=== PATIENT | female | born 1945 | race Caucasian/White ===

== ENCOUNTER 2018-07-29 06:55 | Day surgery (SDC) | payer OTHER, MEDICAID, MEDICARE ==
[2018-07-29] MEDS ORDERED: HEPARIN 10,000 UNIT/10 ML MDV (1,000 UNIT/ML) IVP PRN (07:28)
[2018-07-29] MEDS ORDERED: NALOXONE HCL 0.4 MG/ML INJ IVP PRN (07:28)
[2018-07-29] MEDS ORDERED: fentaNYL 100 MCG/2 ML INJ IVP PRN (07:28)
[2018-07-29] MEDS ORDERED: PROTAMINE SULFATE 50 MG/5 ML VIAL IVP PRN (07:28)
[2018-07-29] MEDS ORDERED: FLUMAZENIL 0.5 MG/5 ML MDV IVP PRN (07:28)
[2018-07-29] MEDS ORDERED: MIDAZOLAM 2 MG/2 ML VIAL IVP PRN (07:28)
[2018-07-29] MEDS ORDERED: NS 1,000 ML IV SCH (07:30)
[2018-07-29] MEDS ORDERED: LIDOCAINE 1% 300 MG/30 ML SDV ONE (08:18)
[2018-07-29] MEDS ORDERED: IOPAMIDOL (ISOVUE-300) 100 ML BTL ONE ×2 (08:18→10:09)
[2018-07-29 08:26] LABS: INR 0.95 (0.83-1.16); PROTIME(PATIENT) 12.9 SEC (12.0-15.0)
--- NOTE | 2018-07-29 09:13 | PDPROPOC ---
Sedation Plan of Care Sedation Plan of Care: vital signs stable, mental status noted, patient educated of risks, benefits, alternatives, patient can tolerate sedation ASA Classification: ASA 2 Planned drugs: fentanyl, midazolam Mallampati Score: Class 2 Mallampati Reference Image: Patient passed 3-3-2 rule?: Yes
--- NOTE | 2018-07-29 09:14 | PDRADPRE ---
Radiology History & Physical Indication for procedure: other (Cerebrovascular insufficiency, innominate artery steal syndrome, critical stenosis innominate artery) Home medications: Amitiza 24 mcg (*) 24 mg PO BID 07/26/18 [Last Taken Unknown] Aspirin 81mg (*) 81 mg PO DAILY 07/26/18 [Last Taken Unknown] Atorvastatin Calcium 20 mg PO DAILY 07/26/18 [Last Taken Unknown] Baclofen 10 mg (*) 10 mg PO DAILY 07/26/18 [Last Taken Unknown] Colace 50 mg PO HS 07/26/18 [Last Taken Unknown] Fish Oil 1,000 mg Softgel 1,000 mg PO DAILY 07/26/18 [Last Taken Unknown] Fluticasone Nasal 1 spray IH BID PRN 07/26/18 [Last Taken Unknown] LEVETIRACETAM 1,500 mg PO DAILY 07/26/18 [Last Taken Unknown] Megestrol Acetate 20 mg PO DAILY 07/26/18 [Last Taken Unknown] Miralax 17 gm (*) 17 gm PO DAILY 07/26/18 [Last Taken Unknown] [place] 7.5-325 Tablet 1 tab PO Q6H 07/26/18 [Last Taken Unknown] Ondansetron HCl 4 mg PO PRN PRN 07/26/18 [Last Taken Unknown] Propranolol HCl 10 mg PO QID 07/26/18 [Last Taken Unknown] QUEtiapine FUMARATE 300 mg PO DAILY 07/26/18 [Last Taken Unknown] Synthroid 75 mcg (*) 75 mcg PO DAILY 07/26/18 [Last Taken Unknown] Vitamin D3 5,000 units PO MWF 07/26/18 [Last Taken Unknown] traZODONE 100MG (*) 100 mg PO HS 07/26/18 [Last Taken Unknown] Allergies/Adverse Reactions: No Known Allergies Allergy (Unverified 07/23/18 17:10) Mental status: A&Ox3 Heart exam: regular rate and rhythm Lungs exam: clear to auscultation Mallampati Score: Class 2 (Plan for innominate artery stent placement)
[2018-07-29] MEDS ORDERED: HEPARIN 10,000 UNIT/10 ML MDV (1,000 UNIT/ML) ONE (09:56)
[2018-07-29 10:43] VITALS: BP 133/60
[2018-07-29] MEDS ORDERED: ONDANSETRON 4 MG/2 ML VIAL IVP PRN (10:48)
[2018-07-29] MEDS ORDERED: OXYCODONE/APAP 5/325 TAB PO PRN (10:48)
[2018-07-29] MEDS ORDERED: CLOPIDOGREL BISULFATE 75 MG TAB PO ONE ×2 (10:49→11:00)
--- NOTE | 2018-07-29 13:08 | PDRADPN ---
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 Please see separately dictacted radiology report for further details. Inf/Abcess present in the surg proc area at time of surgery?: No
== END 2018-07-29 15:00 | disposition home or self-care (01) ==
LOC: FIMAGING 06:55
PROVIDERS: ATTEND Surgery
DX: G45.8 Other transient cerebral ischemic attacks and related syndromes (principal)
CPT/HCPCS: 36225; 37236; 76937; 99152; 99153; C1769; C1892; C1894; C1760; C1876; J1644; J2250; J2310; J3010; Q9967